=== PATIENT | male | born 1955 | race Caucasian/White ===

== ENCOUNTER 2021-09-08 19:10 | Inpatient (IN) | payer MEDICARE, OTHER ==
[~2021-09-08] VITALS: Ht 177.8 cm; Wt 87.5 kg
--- NOTE | 2021-09-08 19:31 | NUR ---
65 Y/O M ROLDAN [facility] BRIGHT RED BLOOD IN THE STOOL. PER SON PATIENT IS BEEN HAVING BLOOD IN HIS STOOL SINCE 0100 AND WAS SEEN AT [facility]. PATIENT IS AWAITING FOR WHIPPLE PROCEDURE TO BE DONE. PER EMS PATIENT WAS HYPOTENSIVE ON THE SCENE AND 500ML IV NS WAS INFUSED CEMENT SIDE LASTER. PT WAS PLACED ON MONITOR IN BED 9 ER, VSS AT THIS TIME. WILL CONT TO MONITOR
--- NOTE | 2021-09-08 19:38 | NUR ---
PALMA, HERNANDEZ: [phone]
--- NOTE | 2021-09-08 19:43 | NUR ---
mitigation supervisor at bedside
[2021-09-08 20:20] LABS: BASOPHILS # (AUTO) 0.4 K/uL (0.0-0.2); BASOPHILS % (AUTO) 3.2 % (0.0-2.0); EOSINOPHILS % (AUTO) 8.2 % (0.0-6.0); LYMPHOCYTES # (AUTO) 0.6 K/uL (0.8-4.8); LYMPHOCYTES % (AUTO) 5.2 % (20.0-44.0); MEAN CORPUSCULAR HGB CONC 31 g/dl (31.0-36.0); MEAN CORPUSCULAR VOLUME 100 fL (80-96); MONOCYTES # (AUTO) 1.2 K/uL (0.1-1.30); MONOCYTES % (AUTO) 9.8 % (2.0-12.0); NEUTROPHILS % (AUTO) 73.6 % (43.0-81.0); PLATELET COUNT (AUTO) 298 K/uL (150-450); WHITE BLOOD COUNT (AUTO) 12.2 K/uL (4.3-11.0)
--- NOTE | 2021-09-08 20:24 | NUR ---
PATIENT TAKEN TO CT
[2021-09-08 20:25] LABS: RED BLOOD CELL COUNT(AUTO) 1.69 MIL/uL (4.5-6.0)
[2021-09-08 20:27] LABS: HEMATOCRIT 17 % (39-51); HEMOGLOBIN 5.2 g/dL (13.5-17.5)
[2021-09-08 20:28] LABS: CALCIUM, SERUM 7.6 mg/dL (8.5-10.1); CARBON DIOXIDE 21 mmol/L (21-32); CHLORIDE 106 mmol/L (98-107); GLUCOSE 138 mg/dL (74-106); POTASSIUM 5.2 mmol/L (3.5-5.1); SODIUM SERUM 137 mmol/L (136-145); UREA NITROGEN, BLOOD 40 mg/dL (7-18)
[2021-09-08 20:34] LABS: ALBUMIN 1.8 g/dL (3.4-5.0); ALKALINE PHOSPHATASE 240 U/L (46-116); ASPARTATE AMINOTRANSFERASE 25 U/L (15-37); BILIRUBIN,DIRECT 2.1 mg/dL (0.0-0.2); BILIRUBIN,TOTAL 2.5 mg/dL (0.2-1.0); LIPASE 105 U/L (73-393); TOTAL PROTEIN, SERUM 5.1 g/dL (6.4-8.2)
[2021-09-08 20:39] LABS: BAND % (MANUAL) 2 % (0.0-5.0); EOSINOPHILS % (MANUAL) 3 % (0-4); LYMPHOCYTES % (MANUAL) 10 % (16-48); MONOCYTES % (MANUAL) 6 % (0-11.0); NEUTROPHILS % (MANUAL) 79 (42-76)
--- NOTE | 2021-09-08 21:00 | NUR ---
BLOOD TRANSFUSION CONSET SIGNED BY PT
[2021-09-08 21:02] LABS: ALANINE AMINOTRANSFERASE 8 U/L (12-78)
--- NOTE | 2021-09-08 21:30 | NUR ---
INITIATED TRANSFUSION
--- NOTE | 2021-09-08 21:45 | NUR ---
NO ADVERSE REACTION TO TRANSFUSION, VSS, PT AFEBRILE
--- NOTE | 2021-09-08 22:07 | NUR ---
PAGED DR NILA SANCHEZ, SURGEON PER DR QUIROS'S ORDER.
--- NOTE | 2021-09-08 22:20 | NUR ---
DR QUIROS ON THE PHONE WITH DR SAM. SANCHEZ
[2021-09-08] MEDS ORDERED: Z GUARD REMEDY 4 OZ OINT TP PRN (22:30)
[2021-09-08] MEDS ORDERED: ACETAMINOPHEN 325 MG TABLET PO PRN (22:30)
--- NOTE | 2021-09-08 22:41 | NUR ---
MRSA SWAB COLLECTED AND SENT TO LAB. PATIENT'S BELONGINGS LIST DONE.
[2021-09-09] VITALS (13 sets, daily range): BP systolic 83–114; BP diastolic 41–62
[2021-09-09] MEDS ORDERED: ONDANSETRON HCL/PF 4 MG/2 ML VIAL ONE (00:33)
[2021-09-09] MEDS ORDERED: ZOLPIDEM TARTRATE 5 MG TABLET ONE (00:45)
[2021-09-09] MEDS: ONDANSETRON HCL/PF 4 MG/2 ML VIAL IVP PRN ×3 (01:03→22:49)
[2021-09-09] MEDS: ZOLPIDEM TARTRATE 5 MG TABLET PO PRN (01:04)
--- NOTE | 2021-09-09 01:55 | NUR ---
STOOL COLLECTED AND SENT TO LAB
[2021-09-09 02:27] LABS: OCCULT BLOOD STOOL POSITIVE (NEGATIVE)
--- NOTE | 2021-09-09 03:22 | NUR ---
LARGE BM NOTED. PT KEPT CLEAN AND DRY. VSS
[2021-09-09 04:57] LABS: BASOPHILS # (AUTO) 0.4 K/uL (0.0-0.2); BASOPHILS % (AUTO) 3.3 % (0.0-2.0); EOSINOPHILS % (AUTO) 2.5 % (0.0-6.0); LYMPHOCYTES # (AUTO) 1.5 K/uL (0.8-4.8); LYMPHOCYTES % (AUTO) 13.5 % (20.0-44.0); MEAN CORPUSCULAR HGB CONC 31 g/dl (31.0-36.0); MEAN CORPUSCULAR VOLUME 97 fL (80-96); MONOCYTES # (AUTO) 0.8 K/uL (0.1-1.30); MONOCYTES % (AUTO) 7.2 % (2.0-12.0); NEUTROPHILS # (AUTO) 8.2 K/uL (1.8-8.9); NEUTROPHILS % (AUTO) 73.5 % (43.0-81.0); PLATELET COUNT (AUTO) 240 K/uL (150-450); WHITE BLOOD COUNT (AUTO) 11.1 K/uL (4.3-11.0)
[2021-09-09 05:05] LABS: ALBUMIN 1.5 g/dL (3.4-5.0); BILIRUBIN,DIRECT 1.9 mg/dL (0.0-0.2); BILIRUBIN,TOTAL 2.2 mg/dL (0.2-1.0); CALCIUM, SERUM 7.2 mg/dL (8.5-10.1); CREATININE 5.5 mg/dL (0.6-1.3); MAGNESIUM 1.8 mg/dL (1.8-2.4); PHOSPHORUS 4.9 mg/dL (2.5-4.9); TOTAL PROTEIN, SERUM 4.2 g/dL (6.4-8.2)
--- NOTE | 2021-09-09 05:05 | NUR ---
SECOND TRANSFUSION STARTED
[2021-09-09 05:11] LABS: THYROID STIMULATING HORMONE 9.619 uIU/mL (0.358-3.74)
[2021-09-09 05:22] LABS: RED BLOOD CELL COUNT(AUTO) 1.45 MIL/uL (4.5-6.0)
[2021-09-09 05:23] LABS: HEMATOCRIT 14 % (39-51); HEMOGLOBIN 4.4 g/dL (13.5-17.5)
--- NOTE | 2021-09-09 05:26 | NUR ---
CRITICAL LAB: [facility] FROM 5.2 TO 4.4. NOTIFIED CARISA HERNANDEZ VIA TEXT. AWAITING RESPONSE.
[2021-09-09 05:29] LABS: POTASSIUM 6.7 mmol/L (3.5-5.1)
[2021-09-09] MEDS ORDERED: DEXTROSE 50%-WATER 50 ML DISP.SYRIN ONE (05:37)
[2021-09-09] MEDS ORDERED: INSULIN REGULAR, HUMAN 100 UNIT/ML 10 ML VIAL ONE (05:37)
--- NOTE | 2021-09-09 05:37 | NUR ---
RELAYED POTASSIUM LEVEL OF 6.7 TO JEANNA HERNANDEZ WITH A NEW ORDER FOR D50 AND INSULIN. NEW ORDER NOTED
[2021-09-09] MEDS ORDERED: INSULIN REGULAR, HUMAN 100 UNIT/ML 10 ML VIAL IV ONE (06:00)
[2021-09-09] MEDS ORDERED: DEXTROSE 50%-WATER 50 ML DISP.SYRIN IVP ONE ×2 (06:00→22:30)
--- NOTE | 2021-09-09 06:40 | NUR ---
INITIATED THRID BLOOD TRANSFUSION
[2021-09-09 06:48] LABS: BAND % (MANUAL) 1 % (0.0-5.0); EOSINOPHILS % (MANUAL) 2 % (0-4); LYMPHOCYTES % (MANUAL) 10 % (16-48); METAMYELOCYTES % 3 % (0-0); MONOCYTES % (MANUAL) 5 % (0-11.0); NEUTROPHILS % (MANUAL) 79 (42-76)
[2021-09-09] MEDS ORDERED: CHOL200059 PO (08:01)
[2021-09-09] MEDS ORDERED: LOSA25TA27 PO (08:01)
--- NOTE | 2021-09-09 08:40 | NUR ---
BLOOD TRANSFUION CONPLETED. NO ADVERSE SIDE EFFECTS NOTED. WILL CONTINUE TO MONITOR THE PATIENT.
[2021-09-09] MEDS ORDERED: PANTOPRAZOLE 40 MG VIAL ONE (09:11)
[2021-09-09] MEDS: PANTOPRAZOLE 40 MG VIAL IV SCH ×2 (09:15→22:09)
--- NOTE | 2021-09-09 10:00 | NUR ---
PATIENT HAD SMALL TO MODERATE BLACK TARRY STOOL
[2021-09-09 14:18] LABS: HEMOGLOBIN 6.5 g/dL (13.5-17.5)
--- NOTE | 2021-09-09 14:35 | NUR ---
INFORMED DR NIKKO VAUGHAN THE LATEST HGB-6.5, HCT-20
--- NOTE | 2021-09-09 15:14 | NUR ---
SON CALLED ASKING TO CALL THEIR SURGEON DR MINNIE BARRAGAN.
--- NOTE | 2021-09-09 15:25 | NUR ---
DR MINNIE BARRAGAN TEL # [phone] AND [phone]
--- NOTE | 2021-09-09 15:28 | NUR ---
One unit PRBC stat per Dr. Turner. The order is read back, verified. Noted and carried out.
[2021-09-09] MEDS ORDERED: IV NS 0.9% 1,000 ML IV ONE (15:30)
--- NOTE | 2021-09-09 15:30 | NUR ---
1000 ML NS wide open once per Dr. Turner. The order is read back, verified. Noted and carried out.
--- NOTE | 2021-09-09 16:00 | NUR ---
SHREDDED FILLER HOPPER FEEDER FOR PICC LINE AT BED SIDE
--- NOTE | 2021-09-09 16:29 | NUR ---
REPORT GIVEN TO DARYL LOMBARDI ICU 257 FOR KATHRYN
--- NOTE | 2021-09-09 17:00 | NUR ---
ADMISSION. RECEIVED THE PT FROM ER VIA GURNEY. PT IS AWAKE, ALERT,FOLLOW COMMANDS. PT CONJUNCTIVA AND GENERALIZED YELLOW COLOR NOTED. KATHARINA LOWER EXTREMITY SWOLLEN . IV RT UPPER ARM PICC RT AND LT HAND PERIPHERAL LINES. BLOOD TRANSFUSION STARTED FROM ER. LT FOOT WOUND.PICTURE TAKEN.
--- NOTE | 2021-09-09 19:11 | NUR ---
ADMISSION REGIONAL SALES LEADER. BLOOD STARTED FROM ER. blood started from ER I RECEIVED THE PT FROM ER AT 1700.BLOOD FINISHED AT 1830.DURING TRANSFUSION NO REACTION NOTED. VITALS STABLE. TEMPERATURE 97.2, ,PULSE 85,RESP/RATE 20,BP127/68
[2021-09-09 20:29] LABS: BASOPHILS # (AUTO) 0.3 K/uL (0.0-0.2); BASOPHILS % (AUTO) 2.4 % (0.0-2.0); EOSINOPHILS % (AUTO) 3.2 % (0.0-6.0); LYMPHOCYTES # (AUTO) 1.6 K/uL (0.8-4.8); LYMPHOCYTES % (AUTO) 13.5 % (20.0-44.0); MEAN CORPUSCULAR HGB CONC 33 g/dl (31.0-36.0); MEAN CORPUSCULAR VOLUME 92 fL (80-96); MONOCYTES % (AUTO) 8.8 % (2.0-12.0); NEUTROPHILS # (AUTO) 8.3 K/uL (1.8-8.9); NEUTROPHILS % (AUTO) 72.1 % (43.0-81.0); PLATELET COUNT (AUTO) 176 K/uL (150-450); WHITE BLOOD COUNT (AUTO) 11.6 K/uL (4.3-11.0)
[2021-09-09 20:38] LABS: RED BLOOD CELL COUNT(AUTO) 1.98 MIL/uL (4.5-6.0)
[2021-09-09 20:39] LABS: HEMATOCRIT 18 % (39-51)
[2021-09-09 21:01] LABS: BAND % (MANUAL) 4 % (0.0-5.0); NEUTROPHILS % (MANUAL) 68 (42-76)
[2021-09-09 21:02] LABS: EOSINOPHILS % (MANUAL) 4 % (0-4); LYMPHOCYTES % (MANUAL) 13 % (16-48); MONOCYTES % (MANUAL) 11 % (0-11.0)
[2021-09-09] MEDS: MIDODRINE HCL (5MG) 5 MG TABLET PO SCH (22:08)
[2021-09-09] MEDS ORDERED: INSULIN REGULAR, HUMAN 100 UNIT/ML 3 ML VIAL IV ONE (22:30)
[2021-09-09] MEDS ORDERED: ALBUMIN 25% 100 ML IV ONE (23:07)
[2021-09-09] MEDS ORDERED: INSULIN REGULAR, HUMAN 100 UNIT/ML 3 ML VIAL ONE (23:14)
[2021-09-09] MEDS ORDERED: ALBUMIN 25% 25 GM in PREMIX 1 EA IV PRN (23:30)
[2021-09-10] VITALS (112 sets, daily range): BP systolic 77–193; BP diastolic 30–93
[2021-09-10] MEDS ORDERED: NOREPINEPHRINE 32 MG in IV NS 0.9% 218 ML IV PRN ×2
--- NOTE | 2021-09-10 00:25 | NUR ---
agriculture sales account manager. h&h 10/17. notified condemnation engineer rosana . ordered 1 unit PRBC. POTASSIUM 6.9 . NOTIFIED ROSANA. INSULIN AND D50W IV GIVEN. HD STARTED.
--- NOTE | 2021-09-10 00:42 | NUR ---
CHARACTER ACTRESS. PT IS NPO.
[2021-09-10] MEDS ORDERED: NOREPINEPHRINE 4 MG/4 ML AMPUL IV ONE (02:39)
[2021-09-10 03:16] LABS: BASOPHILS # (AUTO) 0.2 K/uL (0.0-0.2); BASOPHILS % (AUTO) 1.3 % (0.0-2.0); EOSINOPHILS % (AUTO) 2.5 % (0.0-6.0); LYMPHOCYTES # (AUTO) 2.7 K/uL (0.8-4.8); LYMPHOCYTES % (AUTO) 17.9 % (20.0-44.0); MEAN CORPUSCULAR HGB CONC 31 g/dl (31.0-36.0); MEAN CORPUSCULAR VOLUME 96 fL (80-96); MONOCYTES # (AUTO) 1.5 K/uL (0.1-1.30); MONOCYTES % (AUTO) 9.7 % (2.0-12.0); NEUTROPHILS # (AUTO) 10.4 K/uL (1.8-8.9); NEUTROPHILS % (AUTO) 68.6 % (43.0-81.0); PLATELET COUNT (AUTO) 91 K/uL (150-450); WHITE BLOOD COUNT (AUTO) 15.2 K/uL (4.3-11.0)
[2021-09-10 03:19] LABS: CALCIUM, SERUM 6.7 mg/dL (8.5-10.1); CREATININE 4.5 mg/dL (0.6-1.3); MAGNESIUM 1.7 mg/dL (1.8-2.4); PHOSPHORUS 4.9 mg/dL (2.5-4.9); POTASSIUM 5.9 mmol/L (3.5-5.1)
[2021-09-10 03:21] LABS: ABG BASE EXCESS -15.2 mmol/L; ABG OXYGEN SATURATION 98.8 % (92.0-98.5); ABG PCO2 10.1 mmHg (35.0-45.0); ABG PH 7.491 (7.350-7.450); ABG PO2 469.1 mmHg (75.0-100.0); AaDO2 233.8 mmHg; COHb 0.3 % (0.5-1.5); MetHb 1.2 % (0.0-1.5); O2Hb 97.3 % (94.0-97.0); SITE, ABG Left Radial; VENT MODE, BG NRB
--- NOTE | 2021-09-10 03:23 | NUR ---
STAT ABG DONE. RN NOTIFIED WITH THE RESULT.
[2021-09-10 03:24] LABS: RED BLOOD CELL COUNT(AUTO) 1.26 MIL/uL (4.5-6.0)
[2021-09-10 03:25] LABS: HEMATOCRIT 12 % (39-51); HEMOGLOBIN 3.7 g/dL (13.5-17.5)
[2021-09-10] MEDS ORDERED: SODIUM BICARBONATE SYR 50 MEQ/50 ML DISP.SYRIN IV STA (03:48)
[2021-09-10] MEDS ORDERED: SODIUM BICARBONATE SYR 50 MEQ/50 ML DISP.SYRIN ONE (03:50)
[2021-09-10] MEDS ORDERED: DESMOPRESSIN 4 MCG/ML AMPUL IV ONE (03:51)
[2021-09-10] MEDS ORDERED: IV NS 0.9% 1,000 ML IV ONE (04:00)
--- NOTE | 2021-09-10 04:05 | NUR ---
PROFESSIONAL EMPLOYER CONSULTANT. HD DONE. NO FLUIDS REMOVED.
--- NOTE | 2021-09-10 04:06 | NUR ---
TABLEMAN. PT IS C/O NOT FEELING GOOD. OXYGEN STARTED. STAT LAB DONE. NOTIFIED Ewelina . 1 units PRBC started, THEN 3 UNITS STAT ORDERED,1L BOLUS GIVEN. BICARB DRIP STARTED.
[2021-09-10] MEDS: Sodium Bicarbonate 150 MEQ in IV D5/0.45 NACL 1,000 ML IV PRN ×3 (04:09→22:34)
[2021-09-10] MEDS ORDERED: DESMOPRESSIN 4 MCG/ML AMPUL ONE (04:20)
--- NOTE | 2021-09-10 04:28 | NUR ---
TRANSPORTATION PROGRAM DIRECTORCody MEEKS AT BED SIDE. ASSESS THE PT. NEW ORDER RECEIVED.
--- NOTE | 2021-09-10 04:34 | NUR ---
MUSIC ENGINEER. CALLED THE FAMILY NO ANSWER. LEFT MESSAGE
[2021-09-10] MEDS ORDERED: OCTREOTIDE 100 MCG/ML VIAL ONE (04:45)
[2021-09-10] MEDS ORDERED: PANTOPRAZOLE 80 MG in IV NS 0.9% 100 ML IV ONE (05:00)
[2021-09-10] MEDS ORDERED: OCTREOTIDE 50 MCG in IV NS 0.9% 50 ML IJ ONE (05:00)
[2021-09-10] MEDS ORDERED: PANTOPRAZOLE 80 MG in IV NS 0.9% 500 ML IV PRN (05:00)
[2021-09-10 05:23] LABS: D-DIMER 4.04 mg/L(FEU (0.17-0.50)
[2021-09-10] MEDS ORDERED: OCTREOTIDE 500 MCG/ML VIAL ONE (05:44)
[2021-09-10] MEDS: OCTREOTIDE 1,250 MCG in IV NS 0.9% 247.5 ML IV PRN ×2 (06:27→22:34)
--- NOTE | 2021-09-10 07:10 | NUR ---
RN NOTES RECEIVED PT ON BED, A/Ox4, ON NONREBREATHER MASK, O2 SAT WNL, ON TELE SR , HR IN 80'S , RIGHT UPPER CHEST HD CATH AND R UPPER ARM PICC LINE SITE CLEAN , DRY AND INTACT , PT ON BICARB DRIP AT 100CC/HR , LEVO AT .1 MCG/KG/MIN , SANDOSTAIN DRIP AT 25MVG/HR RUNNING , PT IS NPO, RECEIVING BLOOD TRANSFUSION AT THIS TIME, SR UP x3, CALL LIGHT WITHIN EASY REACH, BED LOCKED AND IN LOWEST POSITION, CONTINUE TO MONITOR .
--- NOTE | 2021-09-10 07:44 | NUR ---
PT REMAINING CRITICAL.TOTAL 5 UNITS PRBC GIVEN. STILL ACTIVE RECTAL BLEEDING. MISA BUILDING CERTIFIER MADE AWARE. IV LEVOPHED AT 0.1MCG/KG/MIN, SANDOSTATIN 25MCG,BICARB DRIP RUNNING. OXYGEN NONREBREATHER,SAT 98%.
[2021-09-10] MEDS: PANTOPRAZOLE 40 MG VIAL IV SCH ×2 (08:14→21:22)
[2021-09-10] MEDS: MIDODRINE HCL (5MG) 5 MG TABLET PO SCH ×3 (08:15→17:00)
[2021-09-10] MEDS: ONDANSETRON HCL/PF 4 MG/2 ML VIAL IVP PRN (08:15)
--- NOTE | 2021-09-10 08:30 | NUR ---
RN NOTES PT RECEIVING HD AT THIS TIME, UNABLE TO TRANSFUSE CRYO AND FFP YET .
[2021-09-10] MEDS: ALBUMIN 25% 25 GM in PREMIX 1 EA IV PRN (09:06)
[2021-09-10 09:41] LABS: HEMOGLOBIN 9.7 g/dL (13.5-17.5)
[2021-09-10] MEDS ORDERED: ROCURONIUM BROMIDE 50 MG/5 ML ONE (12:49)
--- NOTE | 2021-09-10 13:40 | NUR ---
PT. IS AWAKE AND ALERT INTUBATED BY DR. BAUM FOR AIRWAY PROTECTION FOR THE EGD PROCEDURE. VENT SETTINGS BELOW ORDERED: AC 14 VT 500 FIO2 100% PEEP +8 Addendum: 09/10/21 at 1522 by ZAY MCGARRY RT Amended: Links added.
--- NOTE | 2021-09-10 13:40 | NUR ---
RN NOTES PT INTUBATED BY DR BAUM AT THE BEDSIDE FOR EGD . DR VARGAS AT THE BESIDE FOR THE PROCEDURE.
[2021-09-10] MEDS: PROPOFOL 100 ML IV PRN ×5 (14:05→22:50)
[2021-09-10] MEDS ORDERED: GLUCAGON,HUMAN RECOMBINANT 1 MG/VIAL VIAL ONE (14:11)
[2021-09-10] MEDS ORDERED: LABETALOL HCL IV 100MG VIAL ONE ×2 (14:27→14:28)
[2021-09-10] MEDS ORDERED: EPINEPHRINE (1:10,000) SYRINGE 1 MG/10 ML DISP.SYRIN ONE ×2 (14:27)
[2021-09-10] MEDS ORDERED: GLUCAGON,HUMAN RECOMBINANT 1 MG/VIAL VIAL IV ONE (14:30)
--- NOTE | 2021-09-10 14:30 | NUR ---
ONGOING EGD AT BEDSIDE- ANEASTHESIOLOGIST SARIKA REQUESTED FOR LABETALOL IV -PULLED OUT FROM [employer] AND GIVEN BY .
--- NOTE | 2021-09-10 15:22 | NUR ---
VENT CHANGES BELOW MADE PER DR. SANCHEZ: AC 14 VT 500 ML FIO2 40% PEEP +5 BREATH SOUNDS CLEAR BILATERAL. VENT PLUGGED INTO RED OUTLET WITH ALARMS ON AND FUNCTIONING. BVM @ BEDSIDE. Addendum: 09/10/21 at 1524 by ZAY MCGARRY RT Amended: Links added.
[2021-09-10] MEDS ORDERED: LABETALOL 20 MG/4 ML VIAL IV ONE (15:30)
--- NOTE | 2021-09-10 16:00 | NUR ---
RN NOTES TWO LARGE BRIGHT RED BLOODY STOOL NOTED
--- NOTE | 2021-09-10 16:45 | NUR ---
RN NOTES DR VARGAS NOTIFIED REGARDING H/H 7.0, NEW ORDER RECEIVED .
[2021-09-10 16:50] LABS: ABG PCO2 31.8 mmHg (35.0-45.0); ABG PH 7.499 (7.350-7.450); ABG PO2 114.7 mmHg (75.0-100.0); COHb 0.3 % (0.5-1.5); MetHb 0.7 % (0.0-1.5); O2Hb 96.8 % (94.0-97.0); PEEP,BG 5 cm H2O; SITE, ABG Right Radial; VT, ABG 500 mL
[2021-09-10] MEDS ORDERED: PANTOPRAZOLE 40 MG VIAL IV SCH (17:00)
[2021-09-10] MEDS: VITAMINS A AND D 56.7 GM TUBE TP SCH (17:06)
--- NOTE | 2021-09-10 17:06 | NUR ---
RN NOTES PT S/P EGD , PO MEDS HELD AT THIS TIME PER MD ORDER
--- NOTE | 2021-09-10 17:18 | NUR ---
[address] jackson. Addendum: 09/10/21 at 1719 by ZAY MCGARRY RT Amended: Links added.
--- NOTE | 2021-09-10 18:42 | NUR ---
RN NOTES PT REMAINS INTUBATED AND SEDATED, ON DIPRIVAN AT 100MCG/KG/MIN, TOLERAING VENT SETTING WELL, ON TELE SR HR IN 70'S , NPO, R UPPER ARM PICC LINE SITE CLEAN, DRY AND INTACT, BICARB DRIP AT 100 CC/HR , SANDOSTATIN AT 25MCG/HR , LEVO AT .1 MCG/KG/MIN RUNNING , PT RECEIVED 2 UNITS OF FFP AND 20 UNITS OF CRYOPRECIPITATE ON THIS SHIFT, SR UP x3, CALL LIGHT WITHIN EASY REACH, BED LOCKED AND IN LOWEST POSITION, WILL ENDORSE TO MEDICAL ASSISTANT INTERNAL MEDICINE NURSE FOR CONTINUITY OF CARE.
--- NOTE | 2021-09-10 19:30 | NUR ---
RN NOTES RECEIVED CARE OF PATIENT FROM AM NURSE WHILE PATIENT SEDATED WITH DIPRIVAN DRIP AT 100 MCG/KG/MIN, PATIENT SHOWS NO SIGNS OF DISTRESS. PATIENT ON MECHANICAL VENTILATION WITH ORDERED SETTING TOLERATING WELL, O2 SAT 99%, NO RESPIRATORY DISTRESS NOTED. ON TELE SHOWING SR WITH HR IN 70-80S, NPO, R UPPER ARM PICC LINE SITE CLEAN, DRY AND INTACT, BICARB DRIP AT 100 CC/HR , SANDOSTATIN AT 25MCG/HR , LEVO AT 0.1 MCG/KG/MIN RUNNING. WILL ADMINISTER BLOOD TRANSFUSION ORDERED. SAFETY MEASURES IMPLEMENTED, SR UP x3, CALL LIGHT WITHIN EASY REACH, BED LOCKED AND IN LOWEST POSITION, WILL CONTINUE TO MONITOR.
--- NOTE | 2021-09-10 22:30 | NUR ---
RN NOTES BLOOD TRANSFUSION (APHERESIS LRBC) COMPLETED WITHOUT COMPLICATIONS. PATIENT TOLERATED TRANSFUSION WITH VITAL SIGNS REMAINING WITHIN NORMAL RANGES. PATIENT DID NOT SHOW SIGNS OF DISTRESS. HOSPITAL PROTOCOLS FOLLOWED THROUGHOUT PROCEDURE. WILL CONTINUE TO MONITOR PATIENT FOLLOWING TRANSFUSION FOR ANY CHANGES.
[2021-09-10] MEDS: NOREPINEPHRINE 8 MG in IV NS 0.9% 242 ML IV PRN (22:49)
[2021-09-11] VITALS (97 sets, daily range): BP systolic 78–152; BP diastolic 42–81
[2021-09-11] MEDS: PROPOFOL 100 ML IV PRN ×9 (01:06→21:25)
[2021-09-11 01:08] LABS: HEMOGLOBIN 7.4 g/dL (13.5-17.5)
--- NOTE | 2021-09-11 04:20 | NUR ---
RN NOTES A NEW DIPRIVAN BOTTLE WAS STARTED A DRIP AFTER THE LAST ONE INFUSED; HOWEVER, IT WAS NOT SCANNED.
[2021-09-11 04:25] LABS: BASOPHILS # (AUTO) 0.3 K/uL (0.0-0.2); BASOPHILS % (AUTO) 2.2 % (0.0-2.0); EOSINOPHILS % (AUTO) 15.1 % (0.0-6.0); HEMATOCRIT 21 % (39-51); HEMOGLOBIN 7.2 g/dL (13.5-17.5); LYMPHOCYTES # (AUTO) 1.3 K/uL (0.8-4.8); LYMPHOCYTES % (AUTO) 9.8 % (20.0-44.0); MEAN CORPUSCULAR HGB CONC 35 g/dl (31.0-36.0); MEAN CORPUSCULAR VOLUME 87 fL (80-96); MONOCYTES # (AUTO) 1.4 K/uL (0.1-1.30); MONOCYTES % (AUTO) 10.4 % (2.0-12.0); NEUTROPHILS # (AUTO) 8.3 K/uL (1.8-8.9); NEUTROPHILS % (AUTO) 62.5 % (43.0-81.0); PLATELET COUNT (AUTO) 63 K/uL (150-450); RED BLOOD CELL COUNT(AUTO) 2.36 MIL/uL (4.5-6.0); WHITE BLOOD COUNT (AUTO) 13.2 K/uL (4.3-11.0)
[2021-09-11 04:37] LABS: CALCIUM, SERUM 6.2 mg/dL (8.5-10.1); CREATININE 3.8 mg/dL (0.6-1.3); MAGNESIUM 1.6 mg/dL (1.8-2.4); PHOSPHORUS 5.6 mg/dL (2.5-4.9); POTASSIUM 3.9 mmol/L (3.5-5.1)
--- NOTE | 2021-09-11 06:54 | NUR ---
RN NOTES WILL ENDORSE CARE OF PATIENT TO AM NURSE WHILE PATIENT SEDATED ON MECHANICAL VENTILATION. PATIENT TOLERATED VENTILATION WELL THROUGHOUT SHIFT. DIPRIVAN AT 100MCG/KG/MIN, BICARB DRIP AT 100 CC/HR , SANDOSTATIN AT 25MCG/HR , LEVO AT 0.02 MCG/KG/MIN. NO SIGNIFICANT FINDINGS UPON ALL NURSING ASSESSMENTS. BLOOD TRANSFUSION DONE ORDERED. SAFETY MEASURES IMPLEMENTED TRHGHOUT SHIFT. WILL ENDORSE CARE AM NURSE FOR KATHRYN.
--- NOTE | 2021-09-11 07:40 | NUR ---
ICU/RN PT IS INTUBATED ON THE VENT AC MODE.SEDATED WITH HIGH DOSE OF DIPRIVAN .ON LEVOPHED,BICARB AND SANDOSTATIN DRIPS.AFEBRILE.NPO.ANURIC ON HD.RIGHT CHEST HD CATH AND RIGHT UPPER ARM PICC LINE.LABS REVIEW.MD NOTIFIED.NEW ORDERS RECEIVED SUCTION PROVIDED.REPOSITION FOR COMFORT..
[2021-09-11] MEDS: PANTOPRAZOLE 40 MG VIAL IV SCH ×2 (08:01→21:55)
[2021-09-11] MEDS: MIDODRINE HCL (5MG) 5 MG TABLET PO SCH ×3 (08:01→16:12)
[2021-09-11] MEDS: VITAMINS A AND D 56.7 GM TUBE TP SCH ×2 (08:02→16:13)
[2021-09-11] MEDS: Magnesium 1GM/D5W 100ML PREMIX 100 ML IV SCH ×2 (08:40→09:32)
[2021-09-11 09:17] LABS: HEMOGLOBIN 6.7 g/dL (13.5-17.5)
--- NOTE | 2021-09-11 09:49 | NUR ---
ICU/RN PT IS STILL SEDATED POST ARIEL AND CARDIOVERSION.CONTINUE MONITORING.HR-51.
[2021-09-11 11:43] LABS: BAND % (MANUAL) 3 % (0.0-5.0); EOSINOPHILS % (MANUAL) 10 % (0-4); LYMPHOCYTES % (MANUAL) 15 % (16-48); MONOCYTES % (MANUAL) 8 % (0-11.0); MYELOCYTES % 1 % (0-0); NEUTROPHILS % (MANUAL) 63 (42-76)
[2021-09-11] MEDS: Sodium Bicarbonate 150 MEQ in IV D5/0.45 NACL 1,000 ML IV PRN (11:48)
--- NOTE | 2021-09-11 13:45 | NUR ---
ICU/RN 1 UNIT PRBC GIVEN ORDERED. NO S/S OF REACTION NOTED.V/S STABLE.T-99.2. NO S/S OF RECTAL BLEEDING.HD STARTED.HD NURSE AT BEDSIDE.CONTINUE MONITORING.
[2021-09-11 16:06] LABS: LYMPHOCYTES # (AUTO) 0.7 K/uL (0.8-4.8); MONOCYTES # (AUTO) 0.2 K/uL (0.1-1.30)
[2021-09-11 16:12] LABS: BASOPHILS % (AUTO) 0.6 % (0.0-2.0); EOSINOPHILS % (AUTO) 12.8 % (0.0-6.0); HEMATOCRIT 24 % (39-51); HEMOGLOBIN 8.3 g/dL (13.5-17.5); LYMPHOCYTES % (AUTO) 8.9 % (20.0-44.0); MEAN CORPUSCULAR HGB CONC 35 g/dl (31.0-36.0); MEAN CORPUSCULAR VOLUME 86 fL (80-96); MONOCYTES % (AUTO) 2.2 % (2.0-12.0); NEUTROPHILS # (AUTO) 5.7 K/uL (1.8-8.9); NEUTROPHILS % (AUTO) 75.5 % (43.0-81.0); RED BLOOD CELL COUNT(AUTO) 2.83 MIL/uL (4.5-6.0); WHITE BLOOD COUNT (AUTO) 7.6 K/uL (4.3-11.0)
[2021-09-11 17:08] LABS: PLATELET COUNT (AUTO) 36 K/uL (150-450)
[2021-09-11 17:31] LABS: BAND % (MANUAL) 1 % (0.0-5.0); EOSINOPHILS % (MANUAL) 10 % (0-4); LYMPHOCYTES % (MANUAL) 10 % (16-48); MONOCYTES % (MANUAL) 1 % (0-11.0); NEUTROPHILS % (MANUAL) 77 (42-76); REACTIVE LYMPHOCYTES 1 % (0-0)
--- NOTE | 2021-09-11 19:31 | NUR ---
olericulture teacher. initial assessment. received the pt rest in bed. orally intubated. sedated with propofol. ett 7.5,lip 21cm,ac 14,tv 450,fio2 40%,peep 5. sat 98%. no acute distress noted. library monitor showing nsr. iv rt upper arm picc line. ivf d51/2ns @100ml/h,levophed 0.02mcg/kg/min,propofol 100mcg/kg/min,sandostatin mcg/h. hob elevated. npo. will continue to monitor vitals.
[2021-09-11] MEDS: Sodium Bicarbonate 150 MEQ in IV D5/0.45 NACL 1,000 ML IV SCH (23:10)
[2021-09-12] VITALS (78 sets, daily range): BP systolic 88–161; BP diastolic 45–88
[2021-09-12 00:33] LABS: HEMOGLOBIN 10.2 g/dL (13.5-17.5)
--- NOTE | 2021-09-12 01:22 | NUR ---
agricultural aircraft pilot. levophed titrating down.will monitor vitals
[2021-09-12] MEDS: PROPOFOL 100 ML IV PRN ×5 (02:01→23:19)
[2021-09-12 05:09] LABS: BASOPHILS # (AUTO) 0.1 K/uL (0.0-0.2); BASOPHILS % (AUTO) 1.2 % (0.0-2.0); EOSINOPHILS % (AUTO) 16.8 % (0.0-6.0); HEMATOCRIT 23 % (39-51); LYMPHOCYTES # (AUTO) 0.7 K/uL (0.8-4.8); LYMPHOCYTES % (AUTO) 6.5 % (20.0-44.0); MEAN CORPUSCULAR HGB CONC 34 g/dl (31.0-36.0); MEAN CORPUSCULAR VOLUME 87 fL (80-96); MONOCYTES # (AUTO) 0.7 K/uL (0.1-1.30); MONOCYTES % (AUTO) 6.4 % (2.0-12.0); NEUTROPHILS % (AUTO) 69.1 % (43.0-81.0); RED BLOOD CELL COUNT(AUTO) 2.67 MIL/uL (4.5-6.0); WHITE BLOOD COUNT (AUTO) 10.2 K/uL (4.3-11.0)
[2021-09-12 05:35] LABS: ALBUMIN 1.5 g/dL (3.4-5.0); BILIRUBIN,TOTAL 1.2 mg/dL (0.2-1.0); CALCIUM, SERUM 6.6 mg/dL (8.5-10.1); CREATININE 3.6 mg/dL (0.6-1.3); MAGNESIUM 1.9 mg/dL (1.8-2.4); PHOSPHORUS 4.5 mg/dL (2.5-4.9); POTASSIUM 3.4 mmol/L (3.5-5.1); TOTAL PROTEIN, SERUM 3.5 g/dL (6.4-8.2)
[2021-09-12 06:06] LABS: PLATELET COUNT (AUTO) 40 K/uL (150-450)
--- NOTE | 2021-09-12 06:21 | NUR ---
platelets result notified rosana haider
--- NOTE | 2021-09-12 06:23 | NUR ---
horticultural services supervisor. am care given. remaining same vent settings tolerated well. sat 99%. no acute distress noted. cardiac monitor technician showing nsr. iv rt upper arm picc line. ipropofol 60mcg/kg/min, bicarbe drip 100ml/h. sandostatin 25mcg/h. hob elevated. will continue to monitor vitals.
--- NOTE | 2021-09-12 06:25 | NUR ---
agriculture manager. [facility] called for transfer the pt for procedure. spoke with alice. pt covid test result faxed.
[2021-09-12 06:31] LABS: BAND % (MANUAL) 3 % (0.0-5.0); EOSINOPHILS % (MANUAL) 5 % (0-4); LYMPHOCYTES % (MANUAL) 11 % (16-48); MONOCYTES % (MANUAL) 6 % (0-11.0); NEUTROPHILS % (MANUAL) 75 (42-76)
--- NOTE | 2021-09-12 07:40 | NUR ---
ICU/RN PT IS INTUBATED ON THE VENT AC MODE,FIO2-40%.SAT O2-100%.V/S STABLE.AFEBRILE.OFF LEVOPHED SEDATED WITH DIPRIVAN .RIGHT UPPER ARM PICC LINE.ON SANDOSTATIN DRIP.ANURIC .ON HD.RIGHT CHEST HD CATH .NO ACTIVE BLEEDING .LABS REVIEW.MD AWARE .CONTINUE MONITORING.
[2021-09-12] MEDS: PANTOPRAZOLE 40 MG VIAL IV SCH ×2 (08:06→20:21)
[2021-09-12] MEDS: VITAMINS A AND D 56.7 GM TUBE TP SCH ×2 (08:07→17:24)
[2021-09-12] MEDS: MIDODRINE HCL (5MG) 5 MG TABLET PO SCH ×3 (08:07→17:00)
[2021-09-12] MEDS: OCTREOTIDE 1,250 MCG in IV NS 0.9% 247.5 ML IV PRN (08:17)
[2021-09-12] MEDS: NOREPINEPHRINE 8 MG in IV NS 0.9% 242 ML IV PRN ×2 (08:18→18:32)
[2021-09-12] MEDS: ALBUMIN 25% 25 GM in PREMIX 1 EA IV PRN ×2 (08:27→08:38)
[2021-09-12 09:36] LABS: BASOPHILS % (AUTO) 0.5 % (0.0-2.0); EOSINOPHILS % (AUTO) 14.9 % (0.0-6.0); HEMATOCRIT 25 % (39-51); HEMOGLOBIN 8.5 g/dL (13.5-17.5); LYMPHOCYTES # (AUTO) 0.8 K/uL (0.8-4.8); LYMPHOCYTES % (AUTO) 8.7 % (20.0-44.0); MEAN CORPUSCULAR HGB CONC 34 g/dl (31.0-36.0); MEAN CORPUSCULAR VOLUME 87 fL (80-96); MONOCYTES # (AUTO) 0.5 K/uL (0.1-1.30); MONOCYTES % (AUTO) 5.7 % (2.0-12.0); NEUTROPHILS # (AUTO) 6.3 K/uL (1.8-8.9); NEUTROPHILS % (AUTO) 70.2 % (43.0-81.0); WHITE BLOOD COUNT (AUTO) 8.9 K/uL (4.3-11.0)
[2021-09-12 09:38] LABS: PLATELET COUNT (AUTO) 35 K/uL (150-450)
--- NOTE | 2021-09-12 10:00 | NUR ---
ICU/RN DURING HD ALBUMIN IV GIVEN AND LEVOPHED RESTARTED.H/H REPEAT.
[2021-09-12 11:28] LABS: EOSINOPHILS % (MANUAL) 10 % (0-4); LYMPHOCYTES % (MANUAL) 8 % (16-48); MONOCYTES % (MANUAL) 5 % (0-11.0); NEUTROPHILS % (MANUAL) 77 (42-76)
[2021-09-12] MEDS: Sodium Bicarbonate 150 MEQ in IV D5/0.45 NACL 1,000 ML IV SCH (11:29)
--- NOTE | 2021-09-12 12:10 | NUR ---
ICU/RN HD IS OVER. 2L OUT.H/H STABLE.
--- NOTE | 2021-09-12 14:00 | NUR ---
ICU/RN SEDATION VACATION PROVIDED.
--- NOTE | 2021-09-12 17:30 | NUR ---
ICU/RN PM CARE PROVIDED. DUE MEDS ARE GIVEN ORDERED . OFF LEVOPHED . NO S/S OF BLEEDING DURING THE DAY.SEDATION VACATION PROVIDED.PT FOLLOWS COMMAND.BACK ON SEDATION.CONTINUE MONITORING.
--- NOTE | 2021-09-12 19:10 | NUR ---
RN NOTE RECEIVED PATIENT IN BED, SEDATED, IN NO ACUTE DISTRESS AT THIS TIME. ON TRACH 7.09/19 ON THE LIP CONNECTED TO MECHANICAL VENT WITH SETTINGS PRESCRIBED: AC 14, TV 450, FIO2 40%, PEEP 5; SATURATION AT 100%, SR ON THE MONITOR, HR IS 67. BRANDI PICC LINE, AND R UPPER CHEST HD CATH IN PLACE, NO S/S OF INFECTION. PROPOFOL INFUSING AT 60 MCG/KG/MIN, LEVOPHED AT 0.02 MCG/KG/MIN, AND SANDOSTATIN AT 25 MCG/HR. SOFT WRIST RESTRAINTS NOTED ON B WRISTS, SKIN AND CIRCULATION WAS CHECKED AND ARE WNL. SAFETY MEASURES IMPLEMENTED. PATIENT BED ALARM IS ON. HEAD OF BED ELEVATED. BED IS LOCKED, IN LOWEST POSITION AND SIDE RAILS UP. WILL CONTINUE TO MONITOR AND REASSESS FOR ANY CHANGES.
[2021-09-13] VITALS (61 sets, daily range): BP systolic 92–139; BP diastolic 48–73
[2021-09-13] MEDS: PROPOFOL 100 ML IV PRN ×7 (01:48→23:03)
[2021-09-13 05:05] LABS: BASOPHILS # (AUTO) 0.1 K/uL (0.0-0.2); EOSINOPHILS % (AUTO) 18.4 % (0.0-6.0); HEMATOCRIT 24 % (39-51); LYMPHOCYTES # (AUTO) 0.7 K/uL (0.8-4.8); LYMPHOCYTES % (AUTO) 7.9 % (20.0-44.0); MEAN CORPUSCULAR HGB CONC 33 g/dl (31.0-36.0); MEAN CORPUSCULAR VOLUME 88 fL (80-96); MONOCYTES # (AUTO) 0.5 K/uL (0.1-1.30); NEUTROPHILS # (AUTO) 5.8 K/uL (1.8-8.9); NEUTROPHILS % (AUTO) 66.7 % (43.0-81.0); RED BLOOD CELL COUNT(AUTO) 2.73 MIL/uL (4.5-6.0); WHITE BLOOD COUNT (AUTO) 8.6 K/uL (4.3-11.0)
[2021-09-13 05:24] LABS: CALCIUM, SERUM 6.6 mg/dL (8.5-10.1); CREATININE 3.5 mg/dL (0.6-1.3); MAGNESIUM 1.7 mg/dL (1.8-2.4); PHOSPHORUS 5.3 mg/dL (2.5-4.9); POTASSIUM 3.2 mmol/L (3.5-5.1)
[2021-09-13 05:49] LABS: PLATELET COUNT (AUTO) 32 K/uL (150-450)
--- NOTE | 2021-09-13 07:35 | NUR ---
RN OPENING NOTE RECEIVED PATIENT IN BED, SEDATED, IN NO ACUTE DISTRESS AT THIS TIME. ON TRACH 7.09/19 ON THE LIP CONNECTED TO MECHANICAL VENT WITH SETTINGS PRESCRIBED: AC 14, TV 450, FIO2 40%, PEEP 5; SATURATION AT 100%, SR ON THE MONITOR, HR IS 53. BRANDI PICC LINE, AND R UPPER CHEST HD CATH IN PLACE, NO S/S OF INFECTION. PROPOFOL INFUSING AT 60 MCG/KG/MIN, LEVOPHED AT 0.02 MCG/KG/MIN, AND SANDOSTATIN AT 25 MCG/HR. SOFT WRIST RESTRAINTS NOTED ON B WRISTS, SKIN AND CIRCULATION WAS CHECKED AND ARE WNL. SAFETY MEASURES IMPLEMENTED. PATIENT BED ALARM IS ON. HEAD OF BED ELEVATED. BED IS LOCKED, IN LOWEST POSITION AND SIDE RAILS UP. WILL CONTINUE TO MONITOR.
[2021-09-13 08:12] LABS: EOSINOPHILS % (MANUAL) 18 % (0-4); LYMPHOCYTES % (MANUAL) 9 % (16-48); MONOCYTES % (MANUAL) 6 % (0-11.0); NEUTROPHILS % (MANUAL) 67 (42-76)
[2021-09-13] MEDS: ALBUMIN 25% 25 GM in PREMIX 1 EA IV PRN (08:37)
[2021-09-13] MEDS: PANTOPRAZOLE 40 MG VIAL IV SCH ×2 (08:50→21:35)
[2021-09-13] MEDS: VITAMINS A AND D 56.7 GM TUBE TP SCH ×2 (08:50→16:16)
[2021-09-13] MEDS: MIDODRINE HCL (5MG) 5 MG TABLET PO SCH ×3 (08:50→16:15)
--- NOTE | 2021-09-13 18:44 | NUR ---
RN CLOSING NOTE PATIENT IN BED, SEDATED, IN NO ACUTE DISTRESS AT THIS TIME. ON TRACH 7.09/19 ON THE LIP CONNECTED TO MECHANICAL VENT WITH SETTINGS PRESCRIBED: AC 14, TV 450, FIO2 40%, PEEP 5; SATURATION AT 100%, SR ON THE MONITOR, HR IS 62. BRANDI PICC LINE, AND R UPPER CHEST HD CATH IN PLACE, NO S/S OF INFECTION. PROPOFOL INFUSING AT 60 MCG/KG/MIN, LEVOPHED AT 0.01 MCG/KG/MIN, AND SANDOSTATIN AT 25 MCG/HR. SOFT WRIST RESTRAINTS NOTED ON B WRISTS, SKIN AND CIRCULATION WAS CHECKED AND ARE WNL. SAFETY MEASURES IMPLEMENTED. PATIENT BED ALARM IS ON. HEAD OF BED ELEVATED. BED IS LOCKED, IN LOWEST POSITION AND SIDE RAILS UP. WILL ENDORSE TO EXCEPTIONAL CHILDREN TEACHER ASSISTANT NURSE FOR KATHRYN.
[2021-09-13] MEDS: OCTREOTIDE 1,250 MCG in IV NS 0.9% 247.5 ML IV SCH (21:35)
[2021-09-14] VITALS (45 sets, daily range): BP systolic 92–159; BP diastolic 45–87
[2021-09-14] MEDS: PROPOFOL 100 ML IV PRN ×3 (03:03→09:24)
[2021-09-14 04:58] LABS: BASOPHILS # (AUTO) 0.1 K/uL (0.0-0.2); BASOPHILS % (AUTO) 0.9 % (0.0-2.0); EOSINOPHILS % (AUTO) 19.2 % (0.0-6.0); HEMATOCRIT 26 % (39-51); HEMOGLOBIN 8.6 g/dL (13.5-17.5); LYMPHOCYTES # (AUTO) 0.8 K/uL (0.8-4.8); LYMPHOCYTES % (AUTO) 9.4 % (20.0-44.0); MEAN CORPUSCULAR HGB CONC 33 g/dl (31.0-36.0); MEAN CORPUSCULAR VOLUME 88 fL (80-96); MONOCYTES # (AUTO) 0.6 K/uL (0.1-1.30); MONOCYTES % (AUTO) 7.1 % (2.0-12.0); NEUTROPHILS # (AUTO) 5.5 K/uL (1.8-8.9); NEUTROPHILS % (AUTO) 63.4 % (43.0-81.0); RED BLOOD CELL COUNT(AUTO) 2.96 MIL/uL (4.5-6.0); WHITE BLOOD COUNT (AUTO) 8.7 K/uL (4.3-11.0)
[2021-09-14 05:00] LABS: PLATELET COUNT (AUTO) 45 K/uL (150-450)
[2021-09-14 05:06] LABS: CREATININE 3.3 mg/dL (0.6-1.3); MAGNESIUM 1.8 mg/dL (1.8-2.4); PHOSPHORUS 5.5 mg/dL (2.5-4.9); POTASSIUM 3.8 mmol/L (3.5-5.1)
[2021-09-14 05:09] LABS: BAND % (MANUAL) 4 % (0.0-5.0); LYMPHOCYTES % (MANUAL) 10 % (16-48)
[2021-09-14 05:10] LABS: EOSINOPHILS % (MANUAL) 14 % (0-4); MONOCYTES % (MANUAL) 6 % (0-11.0); NEUTROPHILS % (MANUAL) 66 (42-76)
--- NOTE | 2021-09-14 07:30 | NUR ---
RN OPENING NOTE PT RECEIVED IN BED SEDATED. PT IS ON MECHANICAL VENT WITH ALL PRESCRIBED SETTINGS TOLERATING WELL SAT 100%. PT IS ANURIC AND SCHEDULED FOR HD TODAY. PT IS NPO AT THIS TIME. IV ACCESS R UA PICC INFUSING WITH DIPRIVAN @60MCG/HR AND SANDOSTATIN @25MCG/HR; R CHEST FOR HD. BED IS LOCKED IN LOWEST POSITION AND ALL HOSPITAL PROTOCOLS ARE IN PLACE. WILL CONTINUE TO MONITOR THIS SHIFT.
[2021-09-14] MEDS: MIDODRINE HCL (5MG) 5 MG TABLET PO SCH ×3 (08:13→16:26)
[2021-09-14] MEDS: PANTOPRAZOLE 40 MG VIAL IV SCH ×2 (08:19→20:44)
[2021-09-14] MEDS: VITAMINS A AND D 56.7 GM TUBE TP SCH ×2 (08:21→16:27)
[2021-09-14] MEDS: ALBUMIN 25% 25 GM in PREMIX 1 EA IV PRN (11:19)
[2021-09-14 16:14] LABS: ABG BASE EXCESS -0.3 mmol/L; ABG OXYGEN SATURATION 87.3 % (92.0-98.5); ABG PCO2 34.2 mmHg (35.0-45.0); ABG PH 7.451 (7.350-7.450); ABG PO2 56.4 mmHg (75.0-100.0); AaDO2 189.5 mmHg; COHb 0.5 % (0.5-1.5); MetHb 0.2 % (0.0-1.5); O2Hb 86.7 % (94.0-97.0); PEEP,BG 5 cm H2O; SITE, ABG Left Radial; VENT MODE, BG SIMV PS15 40%; VT, ABG 450 mL
[2021-09-14] MEDS ORDERED: ACETAMINOPHEN 650 MG/SUPP.RECT RC PRN (18:00)
--- NOTE | 2021-09-14 18:00 | NUR ---
RN NOTE PT TEMP 100.9 ADMINISTERED TYLENOL RC. CONSULTED DR. SANCHEZ REGARDING PTS CURRENT STATUS AND POSSIBLE RESEDATION IF NEEDED. WILL CONTINUE TO MONITOR PT.
--- NOTE | 2021-09-14 18:53 | NUR ---
RN CLOSING NOTE PT IS IN BED OFF SEDATION. PT IS ON MECHANICAL VENT WITH ALL PRESCRIBED SETTINGS TOLERATING WELL SAT 94%. PT IS ANURIC AND HAD HD -1000ML. PT IS NPO AT THIS TIME. IV ACCESS R UA PICC INFUSING WITH SANDOSTATIN @25MCG/HR; R CHEST FOR HD. BED IS LOCKED IN LOWEST POSITION AND ALL HOSPITAL PROTOCOLS ARE IN PLACE. WILL ENDORSE TO SUPERVISOR WHITE SUGAR NURSE FOR KATHRYN.
--- NOTE | 2021-09-14 19:18 | NUR ---
RN NOTE CONSULTED DR. SANCHEZ. PT IS NOT RESTLESS AT THIS TIME AND IS SR. WILL ENDORSE TO MONORAIL CRANE OPERATOR NURSE TO FOLLOW UP WITH DR. SANCHEZ REGARDING POSSIBLE RESEDATION.
--- NOTE | 2021-09-14 19:42 | NUR ---
RN NOTE PT IN BED, OFF SEDATION. ON [facility] VENT TOLERATING SETTINGS WELL. O2 SAT 97%. HAD HD TODAY, 1000 CC OUT PER REPORT. RIGHT UPPER CHEST HD CATH DRESSING DRY AND INTACT. WITH BILATERAL SOFT WRIST RESTRAINTS, CIRCULATION AND SKIN CHECKED. NO S/S OF SKIN BREAKDOWN. BRANDI PICC LINE PATENT AND INTACT, INFUSING SANDOSTATIN @ 25MCG/HR. BED LOCKED AND IN LOWEST POSITION. CALL LIGHT WITHIN REACH. ALL NEEDS ANTICIPATED.
[2021-09-14] MEDS ORDERED: DC PROPOFOL WHEN EXTUBATED XX PRN (20:00)
--- NOTE | 2021-09-14 20:02 | NUR ---
RN NOTE SPOKE WITH DR. SANCHEZ. UPDATED ON PATIENT'S CONDITION. PATIENT IS AWAKE, COMFORTABLE. NO S/S OF RESTLESSNESS ON SIMV MODE. VITAL SIGNS STABLE. RECEIVED NEW ORDERS FOR EXTUBATED. NOTED AND CARRIED OUT.
--- NOTE | 2021-09-14 20:14 | NUR ---
RN NOTE PATIENT POST EXTUBATED BY RT. ADMINISTERED O2 @ 4L VIA NASAL CANNULA, TOLERATING WELL. O2 SAT 97%. VITAL SIGNS STABLE AT THIS TIME. WILL CONTINUE TO MONITOR.
[2021-09-14] MEDS: OCTREOTIDE 1,250 MCG in IV NS 0.9% 247.5 ML IV SCH (21:29)
[2021-09-15] VITALS (18 sets, daily range): BP systolic 96–159; BP diastolic 46–76
[2021-09-15 04:20] LABS: BASOPHILS # (AUTO) 0.1 K/uL (0.0-0.2); BASOPHILS % (AUTO) 0.6 % (0.0-2.0); EOSINOPHILS % (AUTO) 5.4 % (0.0-6.0); HEMATOCRIT 25 % (39-51); HEMOGLOBIN 8.1 g/dL (13.5-17.5); LYMPHOCYTES % (AUTO) 5.8 % (20.0-44.0); MEAN CORPUSCULAR HGB CONC 33 g/dl (31.0-36.0); MEAN CORPUSCULAR VOLUME 89 fL (80-96); MONOCYTES # (AUTO) 0.7 K/uL (0.1-1.30); MONOCYTES % (AUTO) 4.3 % (2.0-12.0); NEUTROPHILS # (AUTO) 14.5 K/uL (1.8-8.9); NEUTROPHILS % (AUTO) 83.9 % (43.0-81.0); PLATELET COUNT (AUTO) 66 K/uL (150-450); RED BLOOD CELL COUNT(AUTO) 2.78 MIL/uL (4.5-6.0); WHITE BLOOD COUNT (AUTO) 17.3 K/uL (4.3-11.0)
[2021-09-15 04:33] LABS: CREATININE 3.1 mg/dL (0.6-1.3); MAGNESIUM 1.6 mg/dL (1.8-2.4); PHOSPHORUS 5.4 mg/dL (2.5-4.9); POTASSIUM 4.2 mmol/L (3.5-5.1)
--- NOTE | 2021-09-15 06:41 | NUR ---
RN NOTE PT RESTING IN BED. RESPONSIVE TO STIMULI. ABLE TO ANSWER SIMPLE QUESTIONS. ON O2 2L VIA NASAL CANNULA O2 SAT 100%. NO S/S OF ANY DISTRESS. BRANDI PICC LINE PATENT AND INTACT, INFUSING SANDOSTATIN @ 25MCG/HR. TURNED AND REPOSITIONED. KEPT CLEAN AND COMFORTABLE. BED LOCKED AND IN LOWEST POSITION. CALL LIGHT WITHIN REACH. WILL ENDORSE TO AM SHIFT.
--- NOTE | 2021-09-15 07:40 | NUR ---
OPENING NOTES RECEIVED PT IN BED RESTING, A/O X 2. PT IS NPO. IV ACCESS ON R CHEST HD, AND BRANDI PICC RUNNING HARRY @ 25. PER REPORT, PT EXTUBATED ON 09/14/21 AT 2014. SWALLOW EVAL ORDERED. PT ON 2L VIA NC SATING AT 100%. ALL SAFETY MEASURES IN PLACE, BED IN LOWEST LOCKED POSITION, SR UP X2, CALL LIGHT WITHIN REACH. WILL CONT TO MONITOR THROUGHOUT SHIFT.
--- NOTE | 2021-09-15 07:48 | NUR ---
WOUND CARE CONSULT: (LATE ENTRY) PT WAS SEEN ON 09/10/21 AT 0730 AND WAS NOTED TO HAVE SACRAL SCARRING AND LEFT FOOT SCABS, PRESENT ON ADMISSION. DPM CONSULT WAS CALLED TO DR SCHWARZ. RECOMMENDATIONS WERE MADE FOR SKIN PROTECTION AND DISCUSSED WITH NURSING STAFF. MD IN AGREEMENT WITH PLAN OF CARE.
--- NOTE | 2021-09-15 07:50 | NUR ---
WOUND CARE FOLLOW UP: PT NOTED TO HAVE SACRAL SCARRING AND HEALED AREAS TO LEFT FOOT. ALL SKIN PROTECTION MEASURES IN PLACE AND DISCUSSED WITH NURSING STAFF. MD IN AGREEMENT WITH PLAN OF CARE.
[2021-09-15] MEDS: PANTOPRAZOLE 40 MG VIAL IV SCH ×2 (08:49→22:13)
[2021-09-15] MEDS: MIDODRINE HCL (5MG) 5 MG TABLET PO SCH ×3 (08:49→17:00)
[2021-09-15] MEDS: VITAMINS A AND D 56.7 GM TUBE TP SCH ×2 (08:49→17:00)
[2021-09-15] MEDS: CEFEPIME 2 GM in IV D5W 100 ML IV SCH (12:25)
--- NOTE | 2021-09-15 15:03 | NUR ---
TRANSFER NOTE PT TRANSFERED TO [facility] ROOM 118 BED 1 IN STABLE CONDITION. ACLS PROTOCOLS FOLLOWED. BEDSIDE REPORT GIVEN TO TERESSA BRITO. ALL BELONGINGS SENT WITH PT.
[2021-09-15] MEDS: ONDANSETRON HCL/PF 4 MG/2 ML VIAL IVP PRN (17:45)
--- NOTE | 2021-09-15 19:44 | NUR ---
RN NOTE PT RESTING IN BED. AWAKE AND RESPONSIVE. ON O2 @2L VIA NC. NOT IN RESPI DISTRESS. BRANDI PICC LINE IN PLACE AND PATENT. RU CHEST HD CATH IN PLACE. PT IS S/P HD WITH 1500 FLUIDS TAKEN OUT. V/S STABLE. AM/PM CARE DONE. SAFETY MEASURES FOLLOWED. WILL CONTINUE TO MONITOR. ENDORSED TO NEXT SHIFT.
--- NOTE | 2021-09-15 20:57 | NUR ---
heel shaper Opening Note Pt in bed awake, A&O x3; able to correctly state name, , and where he's at. Pt on 2L NC, O2sat 100%, no s/s of resp distress, no SOB, non-labored breathing. Pt attached to external monitor SR, HR 66. BRANDI PICC intact and patent, no s/s of infiltration, flushes well with no resistance. Bed in lowest position, call light within reach, side rails up x3. Will monitor throughout the night.
[2021-09-16] VITALS: BP 126/67
[2021-09-16 04:00] VITALS: BP 126/56
--- NOTE | 2021-09-16 06:14 | NUR ---
single fold machine operator Closing Note Pt in bed awake, A&O x2-3; at beginning of shift pt able to correctly state name, , and where he's at; but when later reassessed at night, pt only A&O to time and place. Pt remains on 2L NC, O2sat 100% throughout the night; no s/s of resp distress, no SOB, non-labored breathing. Pt able to cough well, though weak. Pt attached to external monitor SR, HR 72. BRANDI PICC intact and patent, no s/s of infiltration, flushes well with no resistance. Bed in lowest position, call light within reach, side rails up x3. Will endorse care to dayshift nurse to continue care.
[2021-09-16 06:15] LABS: BASOPHILS # (AUTO) 0.1 K/uL (0.0-0.2); BASOPHILS % (AUTO) 0.8 % (0.0-2.0); EOSINOPHILS % (AUTO) 17.2 % (0.0-6.0); HEMATOCRIT 25 % (39-51); LYMPHOCYTES # (AUTO) 0.7 K/uL (0.8-4.8); LYMPHOCYTES % (AUTO) 4.8 % (20.0-44.0); MEAN CORPUSCULAR HGB CONC 33 g/dl (31.0-36.0); MEAN CORPUSCULAR VOLUME 89 fL (80-96); MONOCYTES # (AUTO) 0.7 K/uL (0.1-1.30); MONOCYTES % (AUTO) 5.2 % (2.0-12.0); NEUTROPHILS # (AUTO) 10.1 K/uL (1.8-8.9); PLATELET COUNT (AUTO) 119 K/uL (150-450); RED BLOOD CELL COUNT(AUTO) 2.77 MIL/uL (4.5-6.0)
[2021-09-16 07:13] LABS: ALBUMIN 1.6 g/dL (3.4-5.0); ALKALINE PHOSPHATASE 130 U/L (46-116); ASPARTATE AMINOTRANSFERASE 18 U/L (15-37); BILIRUBIN,TOTAL 1.5 mg/dL (0.2-1.0); CALCIUM, SERUM 7.1 mg/dL (8.5-10.1); CARBON DIOXIDE 26 mmol/L (21-32); CHLORIDE 98 mmol/L (98-107); CREATININE 3.2 mg/dL (0.6-1.3); GLUCOSE 98 mg/dL (74-106); POTASSIUM 3.7 mmol/L (3.5-5.1); SODIUM SERUM 134 mmol/L (136-145); TOTAL PROTEIN, SERUM 4.3 g/dL (6.4-8.2); UREA NITROGEN, BLOOD 22 mg/dL (7-18)
[2021-09-16 07:30] LABS: ALANINE AMINOTRANSFERASE < 6 U/L (12-78)
--- NOTE | 2021-09-16 07:30 | NUR ---
RN OPENING NOTES RECEIVED PATIENT IN BED, AWAKE, A/O X3, VERBALLY RESPONSIVE. NO SIGNS OF ACUTE DISTRESS NOTED. STABLE ON O2 @ 2LPM VIA N/C. NO SOB NOTED, BREATHING EVEN AND UNLABORED. NOTED WITH IV ACCESS ON RIGHT UPPER ARM PICC LINE, INTACT AND PATENT. ALSO WITH HD CATHETER ON RIGHT CHEST WALL WITH DRESSING C/D/I. NO C/O PAIN AT THIS TIME. REMAINS ON TELE MONITOR. SINUS RHYTHM, HR AT79. SAFETY MEASURE IN PLACE, BED IN LOWEST AND LOCKED POSITION, SIDE RAILS UP X2, CALL LIGHT PLACED WITHIN EASY REACH. WILL CONTINUE TO MONITOR PATIENT.
[2021-09-16 08:00] VITALS: BP 130/72
[2021-09-16] MEDS: PANTOPRAZOLE 40 MG VIAL IV SCH ×2 (08:56→21:41)
[2021-09-16] MEDS: MIDODRINE HCL (5MG) 5 MG TABLET PO SCH ×3 (08:56→16:42)
[2021-09-16] MEDS ORDERED: METR500T PO (09:19)
[2021-09-16] MEDS ORDERED: PANT40TA2 PO (09:19)
[2021-09-16] MEDS ORDERED: CIPR500T5 PO (09:19)
[2021-09-16] MEDS: VITAMINS A AND D 56.7 GM TUBE TP SCH ×2 (09:21→17:00)
--- NOTE | 2021-09-16 11:49 | NUR ---
RN NOTES BLOOD CULTURE RESULTS: GRAM POSITIVE COCCI IN CLUSTERS, DR. PAGNA MADE AWARE. NO NEW ORDER AT THIS TIME.
[2021-09-16 12:00] VITALS: BP 134/65
[2021-09-16] MEDS: CEFEPIME 2 GM in IV D5W 100 ML IV SCH (12:06)
[2021-09-16 16:00] VITALS: BP 123/65
[2021-09-16] MEDS: LACTULOSE 10 G/15 ML UDC (PYXIS) PO SCH (16:26)
[2021-09-16] MEDS: DOCUSATE SODIUM 100 MG CAPSULE PO SCH (16:26)
--- NOTE | 2021-09-16 18:34 | NUR ---
RN CLOSING NOTES PATIENT IN BED, AWAKE, A/O X3, VERBALLY RESPONSIVE. NO SIGNS OF ACUTE DISTRESS NOTED. STABLE ON ROOM AIR. NO SOB NOTED, BREATHING EVEN AND UNLABORED. IV ACCESS ON RIGHT UPPER ARM PICC LINE, INTACT AND PATENT, SALINE LOCKED. RIGHT CHEST WALL HD CATHETER INTACT WITH DRESSING C/D/I. NO BLEEDING NOTED ON SITE. ON TELE MONITOR, SHOWING SINUS RHYTHM, HR AT 80. SAFETY MEASURE MAINTAINED, BED IN LOWEST AND LOCKED POSITION, SIDE RAILS UP X2, CALL LIGHT PLACED WITHIN EASY REACH. WILL ENDORSE TO NEXT SHIFT FOR CONTINUITY OF CARE.
[2021-09-16 20:00] VITALS: BP 125/70
[2021-09-16] MEDS: POLYETHYLENE GLYCOL 3350 17 GM POWD.PACK PO SCH (21:41)
[2021-09-16] MEDS: ZOLPIDEM TARTRATE 5 MG TABLET PO PRN (23:30)
[2021-09-17] VITALS: BP 133/67
[2021-09-17 04:00] VITALS: BP 131/66
--- NOTE | 2021-09-17 07:00 | NUR ---
RN NOTES WILL ENDORSE CARE OF PATIENT TO AM NURSE WHILE PATIENT IN BED, ASLEEP, WAKES UP TO NAME. PATIENT IS A/O X4, ABLE TO MAKE NEEDS KNOWN. PATIENT IN NO DISCOMFORT AT THIS TIME. ALL PATIENT NEEDS MET THROUGHOUT SHIFT. ALL DUE MEDS GIVEN. NO SIGNIFICANT FINDINGS UPON ALL NURSING ASSESSMENTS. ALL SAFETY PRECAUTIONS IMPLEMENTED PER HOSPITAL PROTOCOLS. WILL ENDORSE TO AM NURSE FOR CONTINUITY OF CARE.
[2021-09-17 07:08] LABS: ALANINE AMINOTRANSFERASE < 6 U/L (12-78); ALBUMIN 1.5 g/dL (3.4-5.0); ALKALINE PHOSPHATASE 128 U/L (46-116); ASPARTATE AMINOTRANSFERASE 14 U/L (15-37); BILIRUBIN,TOTAL 1.2 mg/dL (0.2-1.0); CALCIUM, SERUM 7.2 mg/dL (8.5-10.1); CARBON DIOXIDE 28 mmol/L (21-32); CHLORIDE 100 mmol/L (98-107); CREATININE 4.4 mg/dL (0.6-1.3); GLUCOSE 111 mg/dL (74-106); POTASSIUM 3.7 mmol/L (3.5-5.1); SODIUM SERUM 136 mmol/L (136-145); TOTAL PROTEIN, SERUM 4.3 g/dL (6.4-8.2); UREA NITROGEN, BLOOD 31 mg/dL (7-18)
[2021-09-17 07:24] LABS: BASOPHILS % (AUTO) 0.3 % (0.0-2.0); HEMATOCRIT 27 % (39-51); HEMOGLOBIN 8.9 g/dL (13.5-17.5); LYMPHOCYTES # (AUTO) 0.6 K/uL (0.8-4.8); LYMPHOCYTES % (AUTO) 5.5 % (20.0-44.0); MEAN CORPUSCULAR HGB CONC 33 g/dl (31.0-36.0); MEAN CORPUSCULAR VOLUME 89 fL (80-96); MONOCYTES # (AUTO) 0.7 K/uL (0.1-1.30); MONOCYTES % (AUTO) 5.8 % (2.0-12.0); NEUTROPHILS # (AUTO) 7.3 K/uL (1.8-8.9); NEUTROPHILS % (AUTO) 62.2 % (43.0-81.0); PLATELET COUNT (AUTO) 174 K/uL (150-450); RED BLOOD CELL COUNT(AUTO) 3.02 MIL/uL (4.5-6.0); WHITE BLOOD COUNT (AUTO) 11.7 K/uL (4.3-11.0)
[2021-09-17 07:30] LABS: EOSINOPHILS % (AUTO) 26.2 % (0.0-6.0)
--- NOTE | 2021-09-17 07:30 | NUR ---
RN NOTE RECEIVED PATINET IN BED RESTING ALERT ORIENTEDX4 VERBALLY RESPONSIVE ON 2L OXYGEN VIA NASAL CANNULA,O2 95% IV SITE IS ON RIGHT UPPER ARM PICC LINE INTACT PATENT AND RIGHT CHEST WALL HD CATH,SAFETY MEASURE IMPLEMENT BED IN LOW POSITION AND LOCKED, CALL LIGHT WITHIN REACH CONTINUE TO MONITOR.
[2021-09-17 08:00] VITALS: BP 124/63
--- NOTE | 2021-09-17 08:30 | NUR ---
RN NOTE START DIALYSIS NOW
[2021-09-17] MEDS: LACTULOSE 10 G/15 ML UDC (PYXIS) PO SCH ×2 (08:50→16:40)
[2021-09-17] MEDS: DOCUSATE SODIUM 100 MG CAPSULE PO SCH ×2 (08:50→16:40)
[2021-09-17] MEDS: PANTOPRAZOLE 40 MG VIAL IV SCH ×2 (08:51→21:11)
[2021-09-17] MEDS: VITAMINS A AND D 56.7 GM TUBE TP SCH ×2 (08:51→16:38)
[2021-09-17] MEDS: MIDODRINE HCL (5MG) 5 MG TABLET PO SCH ×2 (08:52→12:29)
--- NOTE | 2021-09-17 11:45 | NUR ---
RN NOTE DIALYSIS DONE 2L FLUID OUT OF BODY CONTINUE TO MONITOR.
[2021-09-17 12:00] VITALS: BP 101/66
[2021-09-17] MEDS: CEFEPIME 2 GM in IV D5W 100 ML IV SCH (12:29)
[2021-09-17] MEDS ORDERED: MIDODRINE HCL (5MG) 5 MG TABLET PO PRN (14:00)
[2021-09-17] MEDS ORDERED: APIXABAN 5 MG TABLET PO SCH (14:00)
[2021-09-17] MEDS: SOD FERRIC GLUC 125 MG in IV NS 0.9% 100 ML IV SCH (14:13)
[2021-09-17] MEDS: METOPROLOL TARTRATE 50 MG TABLET PO SCH ×2 (14:13→21:12)
[2021-09-17] MEDS: ALBUMIN 25% 25 GM in PREMIX 1 EA IV PRN ×2 (14:13→14:46)
[2021-09-17] MEDS: ALBUMIN 25% 25 GM in PREMIX 1 EA IV SCH (14:48)
[2021-09-17 15:38] LABS: HEMOGLOBIN 8.9 g/dL (13.5-17.5)
[2021-09-17 16:00] VITALS: BP 105/62
[2021-09-17] MEDS ORDERED: AMIODARONE 150 MG in IV D5W 100 ML IV ONE (16:00)
[2021-09-17] MEDS ORDERED: AMIODARONE 450 MG in IV D5W 241 ML IV PRN (16:30)
[2021-09-17] MEDS: AMIODARONE HCL 200 MG TABLET PO SCH (17:13)
--- NOTE | 2021-09-17 18:00 | NUR ---
RN NOTE PER PHARMACY NO VACO GIVEN AFTER DIALYSIS [facility] THROUGH TOMORROW MORNING CONTINUE TO MONITOR.
--- NOTE | 2021-09-17 19:55 | NUR ---
RN NOTE PATIENT REMAINS ALERT ORIENTED X4 VERBALLY RESPONSIVE NO SOB NOT ACUTE DISTRESS NOTED,ALL DUE MEDS GIVEN MD ORDERED KEEP CLEAN AND DRY ENDORSE NEXT COMING SHIFT FOR CONTINUATION OF CARE.
[2021-09-17 20:00] VITALS: BP 112/60
[2021-09-17] MEDS ORDERED: VANCOMYCIN 1 GM in IV D5W 250 ML IV ONE (20:00)
--- NOTE | 2021-09-17 20:00 | NUR ---
RN NOTE PT RESTING IN BED. AWAKE AND RESPONSIVE.A/OX3 V/S STABLE AFEBRILE , ON O2 @2L VIA NC. NOT IN RESPI DISTRESS. BRANDI PICC LINE IN PLACE AND PATENT. RU CHEST HD CATH IN PLACE. PT IS S/P HD WITH 2000 FLUIDS TAKEN OUT.PM CARE DONE. SAFETY MEASURES FOLLOWED. DUE MEDS GIVEN ORDER WILL CONTINUE TO MONITOR..
[2021-09-17] MEDS: POLYETHYLENE GLYCOL 3350 17 GM POWD.PACK PO SCH (21:20)
[2021-09-17 23:13] LABS: HEMOGLOBIN 8.2 g/dL (13.5-17.5)
[2021-09-18] VITALS: BP 126/75
[2021-09-18] MEDS: ALBUMIN 25% 25 GM in PREMIX 1 EA IV SCH (02:40)
[2021-09-18 04:00] VITALS: BP 119/57
[2021-09-18 06:34] LABS: BASOPHILS # (AUTO) 0.1 K/uL (0.0-0.2); BASOPHILS % (AUTO) 0.5 % (0.0-2.0); HEMATOCRIT 26 % (39-51); HEMOGLOBIN 8.5 g/dL (13.5-17.5); LYMPHOCYTES # (AUTO) 0.9 K/uL (0.8-4.8); LYMPHOCYTES % (AUTO) 9.2 % (20.0-44.0); MEAN CORPUSCULAR HGB CONC 33 g/dl (31.0-36.0); MEAN CORPUSCULAR VOLUME 91 fL (80-96); MONOCYTES # (AUTO) 0.8 K/uL (0.1-1.30); MONOCYTES % (AUTO) 7.7 % (2.0-12.0); NEUTROPHILS # (AUTO) 4.7 K/uL (1.8-8.9); NEUTROPHILS % (AUTO) 45.9 % (43.0-81.0); PLATELET COUNT (AUTO) 150 K/uL (150-450); RED BLOOD CELL COUNT(AUTO) 2.86 MIL/uL (4.5-6.0); WHITE BLOOD COUNT (AUTO) 10.2 K/uL (4.3-11.0)
[2021-09-18 06:43] LABS: EOSINOPHILS % (AUTO) 36.7 % (0.0-6.0)
--- NOTE | 2021-09-18 06:50 | NUR ---
satellite television installer notes pts remains in bed awake a/ox4 no jazzy noted the whole shift , plan is for snf for placement or home with family .well endorse to rn day shift for continuity of care.
[2021-09-18 07:27] LABS: ALBUMIN 2.1 g/dL (3.4-5.0); ALKALINE PHOSPHATASE 110 U/L (46-116); ASPARTATE AMINOTRANSFERASE 11 U/L (15-37); BILIRUBIN,TOTAL 1.2 mg/dL (0.2-1.0); CALCIUM, SERUM 7.4 mg/dL (8.5-10.1); CARBON DIOXIDE 27 mmol/L (21-32); CHLORIDE 102 mmol/L (98-107); CREATININE 4.1 mg/dL (0.6-1.3); GLUCOSE 114 mg/dL (74-106); POTASSIUM 3.7 mmol/L (3.5-5.1); SODIUM SERUM 137 mmol/L (136-145); TOTAL PROTEIN, SERUM 4.5 g/dL (6.4-8.2); UREA NITROGEN, BLOOD 23 mg/dL (7-18)
[2021-09-18 07:45] LABS: ALANINE AMINOTRANSFERASE < 6 U/L (12-78)
--- NOTE | 2021-09-18 07:45 | NUR ---
RN NOTE RECEIVE PATIENT IN BED RESTING ALERT ORIENTED X4 VERBALLY RESPONSIVE ON 2L OXYGEN O2:98% SAFETY MEASURE IMPLEMENT BED IN LOW POSITION AND LOCKED CONTINUE TO MONITOR.
[2021-09-18 08:00] VITALS: BP 121/63
[2021-09-18] MEDS: VITAMINS A AND D 56.7 GM TUBE TP SCH ×2 (08:16→17:11)
[2021-09-18] MEDS: LACTULOSE 10 G/15 ML UDC (PYXIS) PO SCH (08:16)
[2021-09-18] MEDS: DOCUSATE SODIUM 100 MG CAPSULE PO SCH ×2 (08:16→17:09)
[2021-09-18] MEDS: PANTOPRAZOLE 40 MG VIAL IV SCH ×2 (08:17→21:24)
[2021-09-18] MEDS: AMIODARONE HCL 200 MG TABLET PO SCH ×2 (08:17→17:09)
[2021-09-18] MEDS: METOPROLOL TARTRATE 50 MG TABLET PO SCH ×2 (08:18→21:26)
[2021-09-18] MEDS ORDERED: AMIO200T7 PO (09:14)
[2021-09-18 09:17] LABS: EOSINOPHILS % (MANUAL) 40 % (0-4); LYMPHOCYTES % (MANUAL) 14 % (16-48); MONOCYTES % (MANUAL) 6 % (0-11.0); NEUTROPHILS % (MANUAL) 40 (42-76)
[2021-09-18 12:00] VITALS: BP 103/56
[2021-09-18] MEDS ORDERED: VANCOMYCIN 500 MG in IV D5W 100 ML IV PRN (12:00)
[2021-09-18] MEDS: CEFEPIME 2 GM in IV D5W 100 ML IV SCH (13:04)
[2021-09-18] MEDS: SOD FERRIC GLUC 125 MG in IV NS 0.9% 100 ML IV SCH (14:24)
[2021-09-18 15:38] LABS: HEMOGLOBIN 9.1 g/dL (13.5-17.5)
[2021-09-18 16:00] VITALS: BP 111/56
--- NOTE | 2021-09-18 19:30 | NUR ---
RN NOTE RECEIVED PATIENT IN BED, AO X 4, IN NO ACUTE DISTRESS AT THIS TIME. RESPIRATIONS UNLABORED, SATURATION AT 95% ON 2L VIA NC, SR ON THE MONITOR, HR IS 77. BRANDI 3L PICC LINE PATENT AND FLUSHING WELL, AND RCW HD CATH INTACT, NO S/S OF INFECTION. SAFETY MEASURES IMPLEMENTED. PATIENT BED ALARM IS ON. HEAD OF BED ELEVATED. BED IS LOCKED, IN LOWEST POSITION AND SIDE RAILS UP. CALL LIGHT WITHIN REACH OF THE PATIENT. WILL CONTINUE TO MONITOR AND REASSESS FOR ANY CHANGES.
--- NOTE | 2021-09-18 19:46 | NUR ---
RN NOTE PATIENT REMAINS ALERT ORIENTED X4 NO SOB NOT ACUTE DISTRESS NOTED ALL DUE MEDS GIVEN MD ORDERED ENDORSE NEXT COMING SHIFT FOR CONTINUATION OF CARE.
[2021-09-18 20:00] VITALS: BP 102/60
[2021-09-18] MEDS: POLYETHYLENE GLYCOL 3350 17 GM POWD.PACK PO SCH (21:24)
[2021-09-18] MEDS: ZOLPIDEM TARTRATE 5 MG TABLET PO PRN (22:48)
[2021-09-18 23:22] LABS: HEMOGLOBIN 8.8 g/dL (13.5-17.5)
[2021-09-19] VITALS: BP 115/80
[2021-09-19 04:00] VITALS: BP 120/57
[2021-09-19 07:10] LABS: BASOPHILS % (AUTO) 0.5 % (0.0-2.0); EOSINOPHILS % (AUTO) 23.1 % (0.0-6.0); HEMATOCRIT 27 % (39-51); LYMPHOCYTES % (AUTO) 10.4 % (20.0-44.0); MEAN CORPUSCULAR HGB CONC 33 g/dl (31.0-36.0); MEAN CORPUSCULAR VOLUME 90 fL (80-96); MONOCYTES # (AUTO) 0.8 K/uL (0.1-1.30); MONOCYTES % (AUTO) 8.9 % (2.0-12.0); NEUTROPHILS # (AUTO) 5.3 K/uL (1.8-8.9); NEUTROPHILS % (AUTO) 57.1 % (43.0-81.0); PLATELET COUNT (AUTO) 171 K/uL (150-450); RED BLOOD CELL COUNT(AUTO) 3.06 MIL/uL (4.5-6.0); WHITE BLOOD COUNT (AUTO) 9.3 K/uL (4.3-11.0)
[2021-09-19 07:27] LABS: ALBUMIN 1.6 g/dL (3.4-5.0); ALKALINE PHOSPHATASE 102 U/L (46-116); ASPARTATE AMINOTRANSFERASE 13 U/L (15-37); CALCIUM, SERUM 7.3 mg/dL (8.5-10.1); CARBON DIOXIDE 25 mmol/L (21-32); CHLORIDE 105 mmol/L (98-107); CREATININE 5.2 mg/dL (0.6-1.3); GLUCOSE 113 mg/dL (74-106); POTASSIUM 3.7 mmol/L (3.5-5.1); SODIUM SERUM 138 mmol/L (136-145); TOTAL PROTEIN, SERUM 4.1 g/dL (6.4-8.2); UREA NITROGEN, BLOOD 29 mg/dL (7-18)
--- NOTE | 2021-09-19 07:30 | NUR ---
RN NOTE RECEIVED PATIENT IN BED RESTING ALERT ORIENTED X4 VERBALLY RESPONSIVE ON 2L OXYGEN VIA NASAL CANNULA.O2:99% IV SITE IS ON BRANDI 3L PICC LINE PATENT AND FLUSHING WELL, AND RCW HD CATH INTACT,SAFETY MEASURE IMPLEMENT BED IN LOW POSITION AND LOCKED,CALL LIGHT WITHIN REACH CONTINUE TO MONITOR.
[2021-09-19 07:45] LABS: ALANINE AMINOTRANSFERASE < 6 U/L (12-78)
--- NOTE | 2021-09-19 07:45 | NUR ---
RN NOTE START DIALYSIS AT THIS TIME CONTINUE TO MONITOR.
[2021-09-19 08:00] VITALS: BP 115/59
[2021-09-19] MEDS: ALBUMIN 25% 25 GM in PREMIX 1 EA IV PRN (08:23)
[2021-09-19] MEDS: VITAMINS A AND D 56.7 GM TUBE TP SCH ×2 (08:45→17:22)
[2021-09-19] MEDS: DOCUSATE SODIUM 100 MG CAPSULE PO SCH ×2 (08:48→17:22)
[2021-09-19] MEDS: PANTOPRAZOLE 40 MG VIAL IV SCH (08:48)
[2021-09-19] MEDS: AMIODARONE HCL 200 MG TABLET PO SCH ×2 (08:49→17:22)
[2021-09-19] MEDS: METOPROLOL TARTRATE 50 MG TABLET PO SCH (09:00)
--- NOTE | 2021-09-19 10:55 | NUR ---
RN NOTE DIALYSIS DONE NO FLUID OUT,CLEANSE ONLY CONTINUE TO MONITOR.
[2021-09-19 12:00] VITALS: BP 102/44
[2021-09-19] MEDS: CEFEPIME 2 GM in IV D5W 100 ML IV SCH (12:45)
[2021-09-19] MEDS: SOD FERRIC GLUC 125 MG in IV NS 0.9% 100 ML IV SCH (13:57)
[2021-09-19 15:23] LABS: HEMOGLOBIN 7.9 g/dL (13.5-17.5)
[2021-09-19 16:00] VITALS: BP 111/55
[2021-09-19 17:22] VITALS: BP 111/55
--- NOTE | 2021-09-19 19:13 | NUR ---
SPECIAL EFFECTS DESIGNER NOTE PATIENT DISCHARGE IN STABLE CONDITION TO [facility],ALERT ORIENTED X4 VERBALLY RESPONSIVE ON ROOM AIR O2:97%,PICC LINE REMOVED NO BLEEDING NO DISCHARGE NOTED REPORT GIVEN TO RN AT [facility],PATIENT SIGNED DISCHARGE PAPER,HE LEFT IN STABLE CONDITION WITH ALL BELONGINGS. BY [facility].
== END 2021-09-19 19:16 | DRG 241 ==
LOC: ER 19:13 → TRANSITION 23:08 → ICU 09-09 16:19 → TELE1 09-15 14:56 → TELE-TD 09-17 16:54 → TELE1 09-17 16:58
PROVIDERS: ADMIT Registered Nurse; ATTEND Internal Medicine
PROC: 30233N1 Transfusion of Nonautologous Red Blood Cells into Peripheral Vein, Percutaneous Approach (ICD-10-PCS; principal; 2021-09-08)
PROC: 5A1D70Z Performance of Urinary Filtration, Intermittent, Less than 6 Hours Per Day (ICD-10-PCS; 2021-09-09)
PROC: 02HV33Z Insertion of Infusion Device into Superior Vena Cava, Percutaneous Approach (ICD-10-PCS; 2021-09-09)
PROC: B548ZZA Ultrasonography of Superior Vena Cava, Guidance (ICD-10-PCS; 2021-09-09)
PROC: 0W3P8ZZ Control Bleeding in Gastrointestinal Tract, Via Natural or Artificial Opening Endoscopic (ICD-10-PCS; 2021-09-10)
PROC: 5A1955Z Respiratory Ventilation, Greater than 96 Consecutive Hours (ICD-10-PCS; 2021-09-10)
PROC: 0BH18EZ Insertion of Endotracheal Airway into Trachea, Via Natural or Artificial Opening Endoscopic (ICD-10-PCS; 2021-09-10)
PROC: 3E0G8GC Introduction of Other Therapeutic Substance into Upper GI, Via Natural or Artificial Opening Endoscopic (ICD-10-PCS; 2021-09-10)
DX: K26.4 Chronic or unspecified duodenal ulcer with hemorrhage (principal); J96.00 Acute respiratory failure, unspecified whether with hypoxia or hypercapnia; A41.9 Sepsis, unspecified organism; R65.21 Severe sepsis with septic shock; R57.1 Hypovolemic shock; E43 Unspecified severe protein-calorie malnutrition; D61.818 Other pancytopenia; C25.9 Malignant neoplasm of pancreas, unspecified; K83.1 Obstruction of bile duct; J18.9 Pneumonia, unspecified organism; J90 Pleural effusion, not elsewhere classified; I12.0 Hypertensive chronic kidney disease with stage 5 chronic kidney disease or end stage renal disease; N18.6 End stage renal disease; Z99.2 Dependence on renal dialysis; Z68.24 Body mass index [BMI] 24.0-24.9, adult; Z85.07 Personal history of malignant neoplasm of pancreas; Z20.822 Contact with and (suspected) exposure to COVID-19; Z85.05 Personal history of malignant neoplasm of liver; Z79.899 Other long term (current) drug therapy; F10.10 Alcohol abuse, uncomplicated; Y90.9 Presence of alcohol in blood, level not specified; K57.90 Diverticulosis of intestine, part unspecified, without perforation or abscess without bleeding; D63.8 Anemia in other chronic diseases classified elsewhere; R94.6 Abnormal results of thyroid function studies; E87.5 Hyperkalemia; E87.70 Fluid overload, unspecified; D62 Acute posthemorrhagic anemia; K83.8 Other specified diseases of biliary tract; R18.8 Other ascites; J98.11 Atelectasis; D53.9 Nutritional anemia, unspecified; E88.09 Other disorders of plasma-protein metabolism, not elsewhere classified; E83.42 Hypomagnesemia; N20.0 Calculus of kidney; Y95 Nosocomial condition; L85.3 Xerosis cutis; I48.92 Unspecified atrial flutter; E86.9 Volume depletion, unspecified
CPT/HCPCS: 31720; 36415; 36569; 36600; 71045-TC; 80048-TC; 80053-TC; 80076-TC; 80202-TC; 82247-TC; 82248-TC; 82272-TC; 82803-TC; 82962-TC; 83690-TC; 83735-TC; 84100-TC; 84132-TC; 84439-TC; 84443-TC; 84478-TC; 84484-TC; 85025-TC; 85027-TC; 85396; 85730-TC; 86706; 86850-TC; 87040-TC; 87340; 90935-TC; 92526; 92611-TC; 93307-TC; 93971-TC; 94002-TC; 94003-TC; 94760-TC; 94762-TC; 94799-TC; 97116-TC; 97530-TC; 97535-TC; A4216; A4217; C9113; C9803; G0378; J0171; J0282; J0692; J1610; J1815; J2354; J2405; J2597; J2916; J3370; J3475; J3490; J7030; J7040; J7050; J7060; P9012; P9016; P9017; P9047